=== PATIENT | male | born 1970 | race Caucasian/White ===

== ENCOUNTER 2017-06-03 12:05 | Emergency (ER) | payer OTHER ==
[~2017-06-03] VITALS: Ht 180.3 cm; Wt 93.0 kg
[2017-06-03] MEDS ORDERED: XANAX1 MG PO (12:16)
[2017-06-03] MEDS ORDERED: AMLODIPINE BESY10 MG PO (12:16)
[2017-06-03] MEDS ORDERED: LEXAPRO20 MG PO (12:17)
[2017-06-03] MEDS ORDERED: OMEPRAZOLE40 MG PO (12:17)
[2017-06-03] MEDS ORDERED: LOSARTAN-HCTZ1 EAC1 PO (12:18)
[2017-06-03 12:23] LABS: HEMATOCRIT 40.6 % (42.0-52.0); HEMOGLOBIN 14.4 gm/dL (14.0-18.0); MCH 31.9 pg (26.0-34.0); MCHC 35.4 g/dL (28.0-37.0); PLATELET COUNT 217 thou/uL (150-400); RBC 4.51 mil/uL (4.50-6.00); RDW 14.3 % (10.5-14.5); WBC 9.6 thou/uL (4.0-11.0)
[2017-06-03 12:24] LABS: MANUAL DIFF YES
[2017-06-03 12:37] LABS: ALBUMIN 4.2 g/dL (3.4-5.0); CALCIUM 8.8 mg/dL (8.5-10.1); CREATININE 0.7 mg/dL (0.7-1.3); DIRECT BILIRUBIN 0.1 mg/dL (<0.1-0.3); TOTAL BILIRUBIN 0.7 mg/dL (<0.1-1.0); TOTAL PROTEIN 7.5 g/dL (6.4-8.2)
[2017-06-03 12:38] LABS: POTASSIUM 2.7 mmol/L (3.5-5.1)
[2017-06-03] MEDS ORDERED: PROMS25 WY RECTAL (12:45)
[2017-06-03] MEDS ORDERED: PHENERGAN 25 MG25 M1 PO (12:45)
[2017-06-03] MEDS ORDERED: POTASSIUM20 PO (12:46)
[2017-06-03 13:39] LABS: LARGE PLATELETS FEW; TOTAL CELL COUNT 100
[2017-06-03 14:53] VITALS: BP 132/70
== END 2017-06-03 14:53 | disposition home or self-care (01) ==
LOC: ER 12:05
PROVIDERS: Emergency Medicine
DX: R10.84 Generalized abdominal pain (principal); E87.6 Hypokalemia; F10.99 Alcohol use, unspecified with unspecified alcohol-induced disorder; F12.10 Cannabis abuse, uncomplicated

== ENCOUNTER 2017-06-05 07:49 | Emergency (ER) | payer OTHER ==
[~2017-06-05] VITALS: Ht 182.9 cm; Wt 90.7 kg
--- NOTE | ~2017-06-05 | EKG ---
[place] [address] [facility] [place] [address] ELECTROCARDIOGRAM REPORT Name: CAMI GOMEZ Room #: [facility] Nora#: [id number] Admission: 06/05/17 Attend Phys: Discharge: 06/05/17 Date of : 66 Report #: [id number] THIS REPORT FOR: //name// [facility] ED Test Date: 2017-06-05 Test Time: 08:43:11 Pat Name: CAMI GOMEZ Department: Room: Gender: [employer]: salena : 1970 Requested By: Windy Carrington Order Number: [id number] MD: Liu Stanton Measurements Intervals [place] Rate: 69 P: 42 CT: 158 QRS: 100 QRSD: 111 T: 15 QT: 419 QTc: 449 Interpretive Statements Sinus rhythm Right axis deviation Repolarization abnormality No previous ECG available for comparison Electronically Signed On 06-05-2017 17:37:18 CDT by Liu Stanton [email or web address] <ELECTRONICALLY SIGNED> By: Liu Stanton MD, [facility] 06/05/17 1737 [id number] Liu Stanton MD, FAC /EPI
[~2017-06-05 07:49] MED LIST: AMLODIPINE BESY10 MG PO; LEXAPRO20 MG PO; LOSARTAN-HCTZ1 EAC1 PO; OMEPRAZOLE40 MG PO; PHENERGAN 25 MG25 M1 PO; POTASSIUM20 PO; PROMS25 WY RECTAL; XANAX1 MG PO
[2017-06-05 08:44] LABS: URINE BILIRUBIN NEGATIVE (Negative); URINE BLOOD NEGATIVE (Negative); URINE COLOR YELLOW; URINE GLUCOSE-RANDOM* NEGATIVE (Negative); URINE KETONES TRACE (Negative); URINE LEUKOCYTES-REFLEX NEGATIVE (Negative); URINE PROTEIN (DIPSTICK) NEGATIVE (Negative); URINE SPECIFIC GRAVITY 1.015 (1.003-1.035)
[2017-06-05 08:58] LABS: ABSOLUTE NEUTROPHILS 7.6 thou/uL (1.4-8.2); BASOPHILS 0.6 % (0.0-2.0); EOSINOPHILS 0.3 % (0.0-3.0); HEMATOCRIT 42.5 % (42.0-52.0); HEMOGLOBIN 14.7 gm/dL (14.0-18.0); LYMPHOCYTES 14.6 % (24.0-44.0); MCH 31.6 pg (26.0-34.0); MCHC 34.6 g/dL (28.0-37.0); MCV 91.3 fL (80.0-100.0); MONOCYTES 5.8 % (1.0-8.0); PLATELET COUNT 214 thou/uL (150-400); POLYS 78.7 % (36.0-66.0); RBC 4.66 mil/uL (4.50-6.00); RDW 13.9 % (10.5-14.5); WBC 9.7 thou/uL (4.0-11.0)
[2017-06-05 09:03] LABS: MANUAL DIFF NO
[2017-06-05 09:11] LABS: ANION GAP 12 mmol/L (7-16); BUN 19 mg/dL (7-18); CHLORIDE 104 mmol/L (98-107); CO2 24 mmol/L (21-32); CREATININE 0.9 mg/dL (0.7-1.3); GLUCOSE 110 mg/dL (74-106); SODIUM 140 mmol/L (136-145)
[2017-06-05 09:18] LABS: ALKALINE PHOSPHATASE 90 U/L (46-116); DIRECT BILIRUBIN 0.2 mg/dL (<0.1-0.3); SGOT 18 U/L (15-37); SGPT 31 U/L (30-65); TOTAL BILIRUBIN 0.7 mg/dL (<0.1-1.0); TOTAL PROTEIN 7.3 g/dL (6.4-8.2); TROPONIN-I < 0.04 ng/mL (<0.04-0.07)
[2017-06-05] MEDS ORDERED: HYDROCODONE-AP1 EAC6 PO (11:04)
[2017-06-05 11:17] VITALS: BP 138/77
== END 2017-06-05 11:04 | disposition home or self-care (01) ==
LOC: ER 07:49
PROVIDERS: Emergency Medicine
DX: R10.84 Generalized abdominal pain (principal); E87.6 Hypokalemia; I10 Essential (primary) hypertension; F32.9 Major depressive disorder, single episode, unspecified; F41.9 Anxiety disorder, unspecified; F10.99 Alcohol use, unspecified with unspecified alcohol-induced disorder; Z98.890 Other specified postprocedural states

== ENCOUNTER 2017-06-08 07:49 | Inpatient (IN) | payer OTHER ==
[~2017-06-08] VITALS: Ht 182.9 cm; Wt 90.7 kg
[~2017-06-08 07:49] MED LIST changes: +HYDROCODONE-AP1 EAC6 PO
[2017-06-08 07:50] VITALS: BP 169/82
[2017-06-08 08:21] LABS: ABSOLUTE NEUTROPHILS 6.9 thou/uL (1.4-8.2); BASOPHILS 0.6 % (0.0-2.0); EOSINOPHILS 0.5 % (0.0-3.0); HEMATOCRIT 44.4 % (42.0-52.0); HEMOGLOBIN 15.5 gm/dL (14.0-18.0); LYMPHOCYTES 15.2 % (24.0-44.0); MANUAL DIFF NO; MCH 31.6 pg (26.0-34.0); MCHC 34.8 g/dL (28.0-37.0); MCV 90.7 fL (80.0-100.0); MONOCYTES 6.2 % (1.0-8.0); PLATELET COUNT 225 thou/uL (150-400); POLYS 77.5 % (36.0-66.0); RBC 4.89 mil/uL (4.50-6.00); RDW 14.1 % (10.5-14.5); WBC 8.9 thou/uL (4.0-11.0)
[2017-06-08 08:33] LABS: ALBUMIN 4.2 g/dL (3.4-5.0); CALCIUM 9.2 mg/dL (8.5-10.1); CREATININE 0.9 mg/dL (0.7-1.3); DIRECT BILIRUBIN 0.2 mg/dL (<0.1-0.3); TOTAL BILIRUBIN 0.8 mg/dL (<0.1-1.0); TOTAL PROTEIN 7.8 g/dL (6.4-8.2)
[2017-06-08 08:35] LABS: POTASSIUM 2.8 mmol/L (3.5-5.1)
[2017-06-08 09:59] VITALS: BP 141/82
[2017-06-08 10:15] VITALS: BP 163/81
[2017-06-08 20:48] VITALS: BP 149/80
[2017-06-09 06:45] VITALS: BP 132/80
[2017-06-09 19:25] VITALS: BP 177/72
[2017-06-10 05:03] LABS: ABSOLUTE NEUTROPHILS 4.8 thou/uL (1.4-8.2); BASOPHILS 0.6 % (0.0-2.0); EOSINOPHILS 0.3 % (0.0-3.0); HEMATOCRIT 40.1 % (42.0-52.0); HEMOGLOBIN 13.9 gm/dL (14.0-18.0); LYMPHOCYTES 24.5 % (24.0-44.0); MCH 31.8 pg (26.0-34.0); MCHC 34.5 g/dL (28.0-37.0); MCV 91.9 fL (80.0-100.0); MONOCYTES 9.6 % (1.0-8.0); PLATELET COUNT 198 thou/uL (150-400); RBC 4.36 mil/uL (4.50-6.00); RDW 13.8 % (10.5-14.5); WBC 7.3 thou/uL (4.0-11.0)
[2017-06-10 05:17] LABS: MANUAL DIFF NO
[2017-06-10 05:23] VITALS: BP 150/73
[2017-06-10 05:28] LABS: CALCIUM 8.3 mg/dL (8.5-10.1); CREATININE 0.8 mg/dL (0.7-1.3); MAGNESIUM 2.1 mg/dL (1.8-2.4); POTASSIUM 3.3 mmol/L (3.5-5.1)
[2017-06-10 08:08] VITALS: BP 158/83
[2017-06-10] MEDS ORDERED: FLAGYL500 MG PO (11:23)
[2017-06-10] MEDS ORDERED: BENTYL 10 MG CA10 M1 PO (11:23)
[2017-06-10] MEDS ORDERED: CIPRO500 MG PO (11:23)
[2017-06-10 13:21] VITALS: BP 158/83
== END 2017-06-10 18:59 | disposition home or self-care (01) | DRG 373 ==
LOC: ER 07:49 → 5S 09:41 → EROBS 09:41 → 4E 09:41 → 5S 10:24 → 4E 06-10 08:21
PROVIDERS: Emergency Medicine; Internal Medicine
DX: A04.9 Bacterial intestinal infection, unspecified (principal); K58.9 Irritable bowel syndrome, unspecified; I10 Essential (primary) hypertension; F32.9 Major depressive disorder, single episode, unspecified; F41.9 Anxiety disorder, unspecified; E87.6 Hypokalemia; G47.33 Obstructive sleep apnea (adult) (pediatric); K22.70 Barrett's esophagus without dysplasia; Z79.899 Other long term (current) drug therapy
CPT/HCPCS: 10086